=== PATIENT | female | born 1995 | race Two or more races ===

== ENCOUNTER 2017-04-30 18:44 | Emergency (ER) | payer MEDICAID ==
[~2017-04-30] VITALS: Ht 152.4 cm; Wt 62.6 kg
[2017-04-30 19:22] LABS: HCG UR LOT HCG7030192
[2017-04-30 19:45] LABS: HCG UR OBC PASS
[2017-04-30] MEDS ORDERED: ACETAMINOPHEN 500 MG TABLET PO ONE (21:45)
[2017-04-30] MEDS ORDERED: ACETAMINOPHEN 500 MG TABLET ONE (21:56)
[2017-04-30 22:34] VITALS: BP 110/74
== END 2017-04-30 22:37 | disposition home or self-care (01) ==
LOC: ED 20:32
DX: N30.01 Acute cystitis with hematuria (principal)
CPT/HCPCS: 74176; 81001; 81025; 87077; 87086; 87186; 99285